=== PATIENT | female | born 1980 | race Caucasian/White ===

== ENCOUNTER 2017-08-12 15:41 | Emergency (ER) | payer BC ==
[~2017-08-12] VITALS: Ht 170.2 cm; Wt 57.0 kg
[~2017-08-12 15:41] MED LIST: MOTRIN800 MG PO; PERCOCET 5/31 TABLET PO; PRENATAL TABLE1 EAC3 PO
[2017-08-12 16:36] LABS: HEMATOCRIT 45.5 % (36.0-46.0); HEMOGLOBIN 15.4 G/DL (11.9-15.5); MCH 30.1 PG (29.0-34.0); MCHC 33.8 G/DL (30.0-36.0); RBC DIS.WIDTH-CV 11.9 % (11.8-14.6); RBC DIS.WIDTH-SD 39.1 % (39-53); RED BLOOD COUNT 5.11 M/uL (3.80-5.20); WHITE BLOOD COUNT 12.8 K/uL (4.1-10.2)
[2017-08-12 16:53] LABS: PLATELET COUNT 276 K/uL (156-360)
[2017-08-12 16:55] LABS: ALBUMIN 4.6 g/dL (3.2-4.8); CHLORIDE 101 mEq/L (99-109); POTASSIUM 3.8 mEq/L (3.7-5.4); SODIUM 137 mEq/L (136-147)
[2017-08-12 16:57] LABS: GLUCOSE 95 mg/dL (70-99)
[2017-08-12 16:58] LABS: TOTAL PROTEIN 8.3 g/dL (6.4-8.3)
[2017-08-12 16:59] LABS: TOTAL BILIRUBIN 0.4 mg/dL (0.0-1.0)
[2017-08-12 17:01] LABS: ALKALINE PHOSPHATASE 86 IU/L (3-129); CREATININE 0.7 mg/dL (0.6-1.3); GFR ESTIMATE (CALCULATED) > 59 mL/min/
[2017-08-12 17:02] LABS: UREA NITROGEN (BUN) 7 mg/dL (9-23)
[2017-08-12 17:03] LABS: AST (GOT) 18 IU/L (2-34)
[2017-08-12 17:04] LABS: ALT (GPT) 16 IU/L (3-49)
[2017-08-12 17:13] LABS: QUANTITATIVE HCG < 4.0 MIU/ML
[2017-08-12 18:46] LABS: APPEARANCE CLEAR ((CLEAR)); BILIRUBIN NEGATIVE; BLOOD SMALL; COLOR STRAW ((YELLOW)); GLUCOSE (STRIP) NEGATIVE; KETONES NEGATIVE; LEUKOCYTES NEGATIVE; NITRITE NEGATIVE; PROTEIN (STRIP) NEGATIVE; SPECIFIC GRAVITY 1.005 (1.000-1.030); UROBILINOGEN 0.2 MG/DL (0.2-1.0)
[2017-08-12] MEDS ORDERED: BENTYL10 MG PO (18:49)
[2017-08-12] MEDS ORDERED: VANCOCIN HCL125 MG PO (18:49)
[2017-08-12 19:01] LABS: BACTERIA NONE SEEN /HPF; EPITHELIAL CELLS RARE /HPF; MUCUS NONE SEEN /LPF; RED BLOOD CELLS 0-5 /HPF (0-5); UCUL ADDED? NO; WHITE BLOOD CELLS 0-5 /HPF (0-5)
[2017-08-12 19:23] VITALS: BP 116/80
[2017-08-12 19:37] LABS: C DIFF TOXIN POSITIVE (NEGATIVE)
== END 2017-08-12 19:26 | disposition home or self-care (01) ==
LOC: EME 15:41
PROVIDERS: Physician Assistant Medical
DX: A04.72 Enterocolitis due to Clostridium difficile, not specified as recurrent (principal)
CPT/HCPCS: 80053; 81003; 84702; 85027; 87493; 87506; 99281; 99284